=== PATIENT | female | born 1925 | race Native Hawaiian/Other Pacific Islander ===

== ENCOUNTER 2016-06-21 09:02 | Inpatient (IN) | payer OTHER ==
[~2016-06-21 09:02] MED LIST: AMLO10TA PO; ANUSOL-HC2.5 % RE; ASPIRIN/ENTERIC81 MG PO; BAYER ASPIRIN E81 MG OR; CETIRIZINE10 MG PO; CIPRO250 MG PO; CLOP75TA2 PO; CULTURELL3 PO; CYCL10TA35 PO; CYPROHEPTAD4 MG PO; FLUC150T PO; FURO20TA67 PO; GLIP10TA55 PO; GLUMETZA500 MG PO; HALO5INJ3 IM; HYDR2.5C36 EX; IMDUR30 MG PO; IMDUR60 MG PO; ISOS30TA17 PO; LEXAPRO10 MG OR; LIPITOR80 MG PO; LISI10TA11 PO; MACROBID100 MG PO; METO25TA4 PO; METO50TA27 PO; NAMENDA5 MG OR; NAMENDA5 MG PO; NITR0.4S2 SL; OLAN10TA2 PO; PANT40TA PO; PLAVIX75 MG PO; POLY3350 PO; PROCTOZONE1 CRE RE; TYLENOL325 MG PO; ZANTAC 75 PO
== END 2016-07-22 08:00 | disposition still patient (30) ==
LOC: PAVB 09:02
PROVIDERS: ADMIT Internal Medicine
DX: Z51.89 Encounter for other specified aftercare (principal)
CPT/HCPCS: 82272

== ENCOUNTER 2016-07-22 09:00 | Inpatient (IN) | payer OTHER | END 2016-08-22 10:54 | disposition still patient (30) | LOC: PAVB 09:00 | PROVIDERS: ADMIT Internal Medicine | DX: Z51.89 Encounter for other specified aftercare (principal) ==

== ENCOUNTER 2016-07-23 07:22 | Outpatient (CLI) | payer OTHER ==
[2016-07-23 08:03] LABS: PLATELET COUNT 229 K/uL (152-353)
[2016-07-23 08:38] LABS: POTASSIUM 4.8 mmol/L (3.6-5.2)
== END 2016-07-23 19:19 | disposition home or self-care (01) ==
LOC: LAB 07:22
PROVIDERS: Internal Medicine
DX: D64.89 Other specified anemias (principal); I10 Essential (primary) hypertension; E11.9 Type 2 diabetes mellitus without complications
CPT/HCPCS: 36415; 80053; 80061; 83036; 85027

== ENCOUNTER 2016-07-30 14:19 | Outpatient (CLI) | payer OTHER | END 2016-07-30 19:26 | disposition home or self-care (01) | LOC: CT 14:19 | DX: S00.83XA Contusion of other part of head, initial encounter (principal) ==

== ENCOUNTER 2016-07-31 05:55 | Outpatient (CLI) | payer OTHER ==
[2016-07-31 09:05] VITALS: BP 158/94; TEMP 97.2
== END 2016-07-31 19:06 | disposition home or self-care (01) ==
LOC: LAB 05:55 → INF 05:55
DX: D64.89 Other specified anemias (principal)
CPT/HCPCS: 36415; 85014; 85018; 96372; J0885

== ENCOUNTER 2016-08-14 04:23 | Outpatient (CLI) | payer OTHER | END 2016-08-14 23:30 | disposition home or self-care (01) | LOC: LAB 04:23 → INF 04:23 | DX: N18.3 Chronic kidney disease, stage 3 (moderate) (principal); D63.1 Anemia in chronic kidney disease | CPT/HCPCS: 85014; 85018 ==

== ENCOUNTER 2016-08-22 11:42 | Inpatient (IN) | payer OTHER ==
[2016-09-13] MEDS ORDERED: DONE5TAB PO (13:01)
[2016-09-13] MEDS ORDERED: LEXAPRO10 MG OR (13:02)
[2016-09-13] MEDS ORDERED: FURO40TA93 PO (13:03)
[2016-09-13] MEDS ORDERED: NAMENDA5 MG OR (13:05)
[2016-09-13] MEDS ORDERED: MULTIVITAMIN OR (13:07)
[2016-09-13] MEDS ORDERED: ASCO500T18 PO (13:08)
[2016-09-13] MEDS ORDERED: EPOGEN2000 MG/ML IJ (13:09)
== END 2016-09-19 12:34 | disposition still patient (30) ==
LOC: PAVB 11:42
PROVIDERS: ADMIT Internal Medicine
DX: Z51.89 Encounter for other specified aftercare (principal)

== ENCOUNTER 2016-08-28 04:16 | Outpatient (CLI) | payer OTHER ==
[~2016-08-28] VITALS: Ht 157.5 cm; Wt 50.1 kg
[2016-08-28 09:15] VITALS: BP 167/76; TEMP 97.7
== END 2016-08-28 20:09 | disposition home or self-care (01) ==
LOC: LAB 04:16 → INF 04:16
DX: N18.3 Chronic kidney disease, stage 3 (moderate) (principal); D63.1 Anemia in chronic kidney disease
CPT/HCPCS: 36415; 85014; 85018; 96372; J0885

== ENCOUNTER 2016-09-11 08:06 | Outpatient (CLI) | payer OTHER ==
[~2016-09-11] VITALS: Ht 157.5 cm; Wt 50.1 kg
[2016-09-11 14:49] VITALS: BP 157/74; TEMP 96
== END 2016-09-11 23:37 | disposition home or self-care (01) ==
LOC: INF 08:06 → LAB 08:06 → INF 10:00
DX: N18.3 Chronic kidney disease, stage 3 (moderate) (principal); D63.1 Anemia in chronic kidney disease
CPT/HCPCS: 36415; 85014; 85018; 96372; J0885

== ENCOUNTER 2016-09-12 10:56 | Outpatient (CLI) | payer OTHER ==
[2016-09-13] MEDS ORDERED: DONE5TAB PO (13:01)
[2016-09-13] MEDS ORDERED: LEXAPRO10 MG OR (13:02)
[2016-09-13] MEDS ORDERED: FURO40TA93 PO (13:03)
[2016-09-13] MEDS ORDERED: NAMENDA5 MG OR (13:05)
[2016-09-13] MEDS ORDERED: MULTIVITAMIN OR (13:07)
[2016-09-13] MEDS ORDERED: ASCO500T18 PO (13:08)
[2016-09-13] MEDS ORDERED: EPOGEN2000 MG/ML IJ (13:09)
== END 2016-09-12 19:01 | disposition home or self-care (01) ==
LOC: LAB 10:56 → RAD 10:56 → LAB 19:01
DX: I50.23 Acute on chronic systolic (congestive) heart failure (principal); R05 Cough; R09.89 Other specified symptoms and signs involving the circulatory and respiratory systems
CPT/HCPCS: 83880

== ENCOUNTER 2016-09-13 10:30 | Inpatient (IN) | payer OTHER ==
[~2016-09-13] VITALS: Ht 157.5 cm; Wt 52.4 kg
[2016-09-13 10:35] VITALS: BP 124/60; TEMP 98.2
[2016-09-13 11:50] LABS: PLATELET COUNT 199 K/uL (152-353)
[2016-09-13 11:56] LABS: POTASSIUM 4.6 mmol/L (3.6-5.2); SODIUM 133 mmol/L (136-145)
[2016-09-13] MEDS ORDERED: DONE5TAB PO (13:01)
[2016-09-13] MEDS ORDERED: LEXAPRO10 MG OR (13:02)
[2016-09-13] MEDS ORDERED: FURO40TA93 PO (13:03)
[2016-09-13] MEDS ORDERED: NAMENDA5 MG OR (13:05)
[2016-09-13] MEDS ORDERED: MULTIVITAMIN OR (13:07)
[2016-09-13] MEDS ORDERED: ASCO500T18 PO (13:08)
[2016-09-13] MEDS ORDERED: EPOGEN2000 MG/ML IJ (13:09)
[2016-09-13 14:31] VITALS: BP 158/80; TEMP 97.7; Ht 157.5 cm; Wt 52.4 kg
--- NOTE | 2016-09-13 15:15 | NUR ---
16 FR LANG PLACED USING STERILE TECHNIQUE. 10ML OF STERILE WATER FILLED BULB AND CATHETER TUBING SECURED TO RIGHT THIGH.
[2016-09-13 16:00] VITALS: BP 158/82; TEMP 97.7
[2016-09-13 20:03] VITALS: BP 129/81; TEMP 98.7
[2016-09-14] VITALS: BP 161/71; TEMP 98.7
[2016-09-14 04:00] VITALS: BP 170/78; TEMP 100
[2016-09-14 05:09] LABS: PLATELET COUNT 220 K/uL (152-353)
[2016-09-14 05:22] LABS: POTASSIUM 4.3 mmol/L (3.6-5.2)
[2016-09-14 08:00] VITALS: BP 157/89; TEMP 98.9
[2016-09-14 12:06] VITALS: BP 147/67; TEMP 99.5
[2016-09-14 16:00] VITALS: BP 140/66; TEMP 98.9
[2016-09-14 20:00] VITALS: BP 160/76; TEMP 99.1
[2016-09-15] VITALS: BP 146/68; TEMP 97.2
[2016-09-15 03:42] VITALS: BP 153/73; TEMP 97.7
[2016-09-15 05:15] LABS: PLATELET COUNT 210 K/uL (152-353)
[2016-09-15 05:18] LABS: POTASSIUM 3.9 mmol/L (3.6-5.2)
[2016-09-15 08:05] VITALS: BP 173/79; TEMP 97.8
--- NOTE | 2016-09-15 08:25 | NUR ---
PT REC'G BATH AT THIS TIME BY SITTER. LINENS PROVIDED. INSTRUCTED SITTER TO CALL FOR ANY ASSISTANCE.
[2016-09-15 11:44] VITALS: BP 144/77; TEMP 98.2
--- NOTE | 2016-09-15 11:44 | NUR ---
PT UP TO CHAIR AT THIS TIME. FAMILY AT BS. NAD NOTED. UA COLLECTED ORDERED.
[2016-09-15 16:22] VITALS: BP 147/68; TEMP 98.2
[2016-09-15 20:13] VITALS: BP 165/88; TEMP 99.1
[2016-09-16 00:10] VITALS: BP 172/82; TEMP 98.6
[2016-09-16 04:29] VITALS: BP 168/86; TEMP 98.3
[2016-09-16 05:49] LABS: POTASSIUM 3.6 mmol/L (3.6-5.2)
[2016-09-16 06:01] LABS: PLATELET COUNT 244 K/uL (152-353)
[2016-09-16 08:00] VITALS: BP 153/82; TEMP 97.8
[2016-09-16 11:55] VITALS: BP 148/82; TEMP 98
[2016-09-16 16:00] VITALS: BP 168/82; TEMP 98
[2016-09-16 20:30] VITALS: BP 168/86; TEMP 98.1
[2016-09-17 00:25] VITALS: BP 170/90; TEMP 98.6
[2016-09-17 03:40] VITALS: BP 162/90; TEMP 98.5
[2016-09-17 06:19] LABS: POTASSIUM 4.1 mmol/L (3.6-5.2)
[2016-09-17 06:39] LABS: PLATELET COUNT 229 K/uL (152-353)
[2016-09-17 08:00] VITALS: BP 170/102; TEMP 98.4
--- NOTE | 2016-09-17 09:09 | NUR ---
09/17/16 AT 0025[facility] 170/90, NO S/S OF DISTRESS AND PT DENIES ANY PROBLEMS. STAFF WILL CONTINUE TO MONITOR B/P, CHARGE NURSE ALSO AWARE OF PT'S B/P.
[2016-09-17 12:02] VITALS: BP 168/91; TEMP 98.4
--- NOTE | 2016-09-17 14:03 | NUR ---
1345 CALLED TO ROOM FOR ASISTANCE WITH PT TO BE CHANGED. PT HAD BM. SMALL AMT OF BRIGHT RED BLOOD NOTED IN DIAPER MIXED WITH BROWN STOOL. PT CLEANED AND REPSOTIIONED IN BED. INFORMED OF RECTAL BLEEDING. NO NEW ORDERS AT THIS TIME.
--- NOTE | 2016-09-17 14:07 | NUR ---
1400 DISCHARGE ORDERS REC;D AT THIS TIME. O2 SET UP PER UR WITH [facility] IN [place]. THEY WILL BRING O2 HERE TO HOSP PRIOR TO DISCHARGE. PT AWRE AND INFORMED
[2016-09-17 16:00] VITALS: BP 160/90; TEMP 97.8
--- NOTE | 2016-09-17 16:15 | NUR ---
1600 PT NOTED TO HAVE SMALL BM WITH BRIGHT RED BLOOD NOTED. DR CANO NOTIFIED AGAIN AT THIS TIME. VS TAKEN WNL SEE VS I&O. NEW ORDERS REC'D TO OBTAIN H&H AND PT/PTT EXPLAINED TO DAUGHTER DAUGHTER VERBLAZIED UNDERSTANDING
[2016-09-17 16:40] LABS: PARTIAL THROMBOPLASTIN TIME 29.8 SECONDS (24.5-33.6)
[2016-09-17 19:58] VITALS: BP 162/93; TEMP 98.6
[2016-09-18 00:01] VITALS: BP 158/92; TEMP 97
[2016-09-18 04:00] VITALS: BP 189/81; TEMP 98.5
[2016-09-18 05:56] LABS: PLATELET COUNT 208 K/uL (152-353)
[2016-09-18 08:03] VITALS: BP 121/98; TEMP 98.2
--- NOTE | 2016-09-18 09:00 | NUR ---
INFORMED PER JOE DOWELL, PCT OF SMALL BLOODY BM. AWARE. MONITORING LABS. NAD NOTED.
[2016-09-18 12:00] VITALS: BP 180/95; TEMP 98.1
[2016-09-18 15:56] VITALS: BP 143/79; TEMP 97.5
[2016-09-18 20:00] VITALS: BP 84/57; TEMP 98.3
[2016-09-19] VITALS: BP 121/69; TEMP 98
[2016-09-19 04:03] LABS: PLATELET COUNT 168 K/uL (152-353)
[2016-09-19 04:10] LABS: POTASSIUM 4.3 mmol/L (3.6-5.2)
[2016-09-19 04:55] VITALS: BP 155/78; TEMP 97.9
[2016-09-19 08:01] VITALS: BP 167/92; TEMP 97.6
[2016-09-19 12:00] VITALS: BP 164/83; TEMP 97.8
--- NOTE | 2016-09-19 13:41 | NUR ---
1200 BS 425 COVERED WITH SS COVERAGE WILL REECHECK IN 1 HR. 1330 BS RECHECKED: 500 MD INFORMED. NEW ORDERS REC'D TO HOLD SOLUMEDROL AND GIVE ANOTHER 10 OF HUMALOG
[2016-09-19 16:26] VITALS: BP 127/71; TEMP 97.6
--- NOTE | 2016-09-19 16:40 | NUR ---
1635 LAB CALLED WITH GLUCOSE VERIFICATION 535 DR CANO CALLED AND REPORTED ELEVATED BS . NEW ORDERS REC'D TO GIVE 20UNITS OF HUMALOG NOW RECHECK IN 1 HR
--- NOTE | 2016-09-19 17:36 | NUR ---
1740 1 HR BS RECHECK 472 DR CANO NOTIFIED. NEW ORDERS GIVEN AGAIN FOR 20 UNTIS SQ RECEHCK IN 1 HR AND NOTIFY
[2016-09-19 20:00] VITALS: BP 115/63; TEMP 98.1
[2016-09-20] VITALS: BP 115/76; TEMP 97.4
[2016-09-20 04:00] VITALS: BP 116/68; TEMP 97.6
[2016-09-20 05:37] LABS: PLATELET COUNT 206 K/uL (152-353)
[2016-09-20 06:23] LABS: POTASSIUM 3.6 mmol/L (3.6-5.2)
[2016-09-20 07:51] VITALS: BP 120/70; TEMP 97.4
[2016-09-20 12:00] VITALS: BP 129/71; TEMP 97.6
--- NOTE | 2016-09-20 14:31 | NUR ---
1415 PRECIOUS LAU DC'D PER ORDEDRS. NO PROBLEMS NOTED. FAMILY AT BS
--- NOTE | 2016-09-20 14:33 | NUR ---
DAILY WEIGHT IS 122
--- NOTE | 2016-09-20 14:42 | NUR ---
1445 PT TRANSFERRED BACK TO [facility] VIA PT'S BED FROM [facility] WITH MELTING FURNACE SKIMMER. NO ACUTE DISTRESS NOTED. REPORT GIVEN TO CALLUM AT [facility]
== END 2016-09-20 14:36 | disposition home or self-care (01) | DRG 291 ==
LOC: ED 10:30 → MED/SURG 12:55
PROVIDERS: Emergency Medicine; Internal Medicine; ADMIT Specialist
DX: I13.0 Hypertensive heart and chronic kidney disease with heart failure and stage 1 through stage 4 chronic kidney disease, or unspecified chronic kidney disease (principal); I50.23 Acute on chronic systolic (congestive) heart failure; N39.0 Urinary tract infection, site not specified; K62.5 Hemorrhage of anus and rectum; N18.4 Chronic kidney disease, stage 4 (severe); I25.10 Atherosclerotic heart disease of native coronary artery without angina pectoris; B96.29 Other Escherichia coli [E. coli] as the cause of diseases classified elsewhere; R06.02 Shortness of breath; E11.9 Type 2 diabetes mellitus without complications; N18.3 Chronic kidney disease, stage 3 (moderate); D63.1 Anemia in chronic kidney disease; R05 Cough; R09.89 Other specified symptoms and signs involving the circulatory and respiratory systems
CPT/HCPCS: 36415; 80048; 80053; 81000; 82272; 82550; 82553; 82947; 82948; 83605; 83735; 83880; 84100; 84484; 85014; 85018; 85027; 85379; 85610; 85730; 87077; 87086; 87088; 87186; 93005; 94640; 94664; 94760; 96372; 99284; J0885; J1020; J1644; J1650; J1940; J2920; J2930; J3490; J7060

== ENCOUNTER 2016-09-19 12:46 | Inpatient (IN) | payer OTHER ==
[~2016-09-19] VITALS: Ht 157.5 cm; Wt 50.0 kg
[~2016-09-19 12:46] MED LIST changes: +ASCO500T18 PO; +DONE5TAB PO; +EPOGEN2000 MG/ML IJ; +FURO40TA93 PO; +MULTIVITAMIN OR
== END 2016-10-20 08:10 | disposition still patient (30) ==
LOC: PAVB 12:46
PROVIDERS: ADMIT Internal Medicine
DX: Z51.89 Encounter for other specified aftercare (principal)
CPT/HCPCS: J0885

== ENCOUNTER 2016-09-25 05:52 | Outpatient (CLI) | payer OTHER ==
[~2016-09-25] VITALS: Ht 157.5 cm; Wt 50.0 kg
[2016-09-25 10:25] VITALS: BP 140/69; TEMP 97.7
== END 2016-09-25 10:55 ==
LOC: INF 05:52 → LAB 05:52 → INF 10:55
DX: N18.3 Chronic kidney disease, stage 3 (moderate) (principal); D63.1 Anemia in chronic kidney disease
CPT/HCPCS: 36415; 85014; 85018; 96372; J0885

== ENCOUNTER 2016-10-02 15:22 | Outpatient (CLI) | payer OTHER | END 2016-10-02 19:33 | disposition home or self-care (01) | LOC: RESP 15:22 | DX: I50.9 Heart failure, unspecified (principal) | CPT/HCPCS: 93306 ==

== ENCOUNTER 2016-10-03 10:54 | Outpatient (CLI) | payer OTHER ==
[2016-10-03 11:10] LABS: PLATELET COUNT 309 K/uL (152-353)
[2016-10-03 12:09] LABS: POTASSIUM 4.8 mmol/L (3.6-5.2)
== END 2016-10-03 19:13 | disposition home or self-care (01) ==
LOC: LABW 10:54
PROVIDERS: Internal Medicine
DX: R06.09 Other forms of dyspnea (principal); M54.5 Low back pain; R05 Cough; I50.9 Heart failure, unspecified; M85.89 Other specified disorders of bone density and structure, multiple sites
CPT/HCPCS: 36415; 80053; 83880; 85027

== ENCOUNTER 2016-10-09 04:32 | Outpatient (CLI) | payer OTHER ==
[~2016-10-09] VITALS: Ht 157.5 cm; Wt 50.1 kg
[2016-10-09 09:10] VITALS: BP 160/88; TEMP 97.7
[2016-10-09 09:48] VITALS: BP 147/80
== END 2016-10-09 19:11 | disposition home or self-care (01) ==
LOC: INF 04:32 → LAB 04:32 → RAD 04:32 → INF 19:11
DX: N18.3 Chronic kidney disease, stage 3 (moderate) (principal); S00.83XA Contusion of other part of head, initial encounter; D63.1 Anemia in chronic kidney disease
CPT/HCPCS: 36415; 85014; 85018; 96372; J0885

== ENCOUNTER 2016-10-20 09:05 | Inpatient (IN) | payer OTHER | END 2016-11-19 09:17 | disposition still patient (30) | LOC: PAVB 09:05 | PROVIDERS: ADMIT Internal Medicine | DX: Z51.89 Encounter for other specified aftercare (principal) ==

== ENCOUNTER 2016-10-23 04:41 | Outpatient (CLI) | payer OTHER ==
[~2016-10-23] VITALS: Ht 157.5 cm; Wt 50.0 kg
[2016-10-23 14:10] VITALS: BP 163/77; TEMP 97.4
== END 2016-10-23 05:41 | disposition home or self-care (01) ==
LOC: LAB 04:41 → INF 04:41
DX: N18.3 Chronic kidney disease, stage 3 (moderate) (principal); E11.9 Type 2 diabetes mellitus without complications; D63.1 Anemia in chronic kidney disease
CPT/HCPCS: 83036; 85014; 85018; 96372; J0885

== ENCOUNTER 2016-11-06 05:33 | Outpatient (CLI) | payer OTHER | END 2016-11-06 19:10 | disposition home or self-care (01) | LOC: LAB 05:33 | DX: Z16.24 Resistance to multiple antibiotics (principal); Z51.81 Encounter for therapeutic drug level monitoring; N39.0 Urinary tract infection, site not specified | CPT/HCPCS: 81000; 85014; 85018; 87077; 87081; 87086; 87088; 87186 ==

== ENCOUNTER 2016-11-09 05:18 | Outpatient (CLI) | payer OTHER | END 2016-11-09 19:10 | disposition home or self-care (01) | LOC: LAB 05:18 | DX: I50.23 Acute on chronic systolic (congestive) heart failure (principal) | CPT/HCPCS: 83880 ==

== ENCOUNTER 2016-11-11 19:23 | Outpatient (CLI) | payer OTHER ==
[2016-11-11 21:22] LABS: POTASSIUM 5.7 mmol/L (3.6-5.2)
== END 2016-11-11 22:00 | disposition home or self-care (01) ==
LOC: LAB 19:23
PROVIDERS: Internal Medicine
DX: R33.8 Other retention of urine (principal)
CPT/HCPCS: 36415; 80048

== ENCOUNTER 2016-11-13 10:28 | Inpatient (IN) | payer OTHER ==
[~2016-11-13] VITALS: Ht 157.5 cm; Wt 48.7 kg
[2016-11-13 10:20] VITALS: BP 165/83; TEMP 98
[2016-11-13 14:07] LABS: POTASSIUM 4.2 mmol/L (3.6-5.2)
[2016-11-13 14:36] VITALS: BP 118/58
[2016-11-13 14:51] LABS: PLATELET COUNT 303 K/uL (152-353)
[2016-11-13 15:19] VITALS: BP 165/75; TEMP 98.3; Ht 157.5 cm; Wt 48.7 kg
[2016-11-13 16:21] VITALS: BP 165/76; TEMP 98.3
[2016-11-13 20:00] VITALS: BP 141/62; TEMP 97.9
[2016-11-14] VITALS: BP 113/61; TEMP 98.5
[2016-11-14 04:00] VITALS: BP 129/64; TEMP 97.7
[2016-11-14 04:24] LABS: PLATELET COUNT 191 K/uL (152-353)
[2016-11-14 04:36] LABS: POTASSIUM 3.9 mmol/L (3.6-5.2)
[2016-11-14 08:00] VITALS: BP 188/73; TEMP 98.2
[2016-11-14 12:00] VITALS: BP 130/75; TEMP 98.6
[2016-11-14 16:00] VITALS: BP 148/77; TEMP 98.1
[2016-11-14 18:29] LABS: POTASSIUM 3.6 mmol/L (3.6-5.2)
[2016-11-14 20:00] VITALS: BP 168/84; TEMP 98.7
[2016-11-15] VITALS: BP 163/79; TEMP 98.1
[2016-11-15 04:00] VITALS: BP 175/89; TEMP 97.9
[2016-11-15 04:52] LABS: PLATELET COUNT 190 K/uL (152-353)
[2016-11-15 05:02] LABS: POTASSIUM 3.3 mmol/L (3.6-5.2)
[2016-11-15 08:00] VITALS: BP 179/71; TEMP 97.6
[2016-11-15 12:00] VITALS: BP 156/73; TEMP 98.6
[2016-11-15 16:00] VITALS: BP 132/82; TEMP 98.6
[2016-11-15 17:52] LABS: POTASSIUM 3.5 mmol/L (3.6-5.2)
[2016-11-15 20:43] VITALS: BP 141/75; TEMP 98.8
[2016-11-16 00:18] VITALS: BP 128/69; TEMP 98.8
[2016-11-16 04:00] VITALS: BP 139/67; TEMP 98
[2016-11-16 05:09] LABS: POTASSIUM 3.2 mmol/L (3.6-5.2)
[2016-11-16 05:15] LABS: PLATELET COUNT 168 K/uL (152-353)
[2016-11-16 07:51] VITALS: BP 139/72; TEMP 98.9
[2016-11-16 11:44] VITALS: BP 109/55; TEMP 98.3
[2016-11-16 15:57] VITALS: BP 116/53; TEMP 99.3
[2016-11-16 19:47] VITALS: BP 139/68; TEMP 98.2
[2016-11-17 00:15] VITALS: BP 123/53; TEMP 98.8
[2016-11-17 08:00] VITALS: BP 151/75; TEMP 98.9
[2016-11-17 09:08] LABS: PLATELET COUNT 153 K/uL (152-353)
[2016-11-17 09:15] LABS: POTASSIUM 3.7 mmol/L (3.6-5.2)
[2016-11-17 11:44] VITALS: BP 162/67; TEMP 97.7
[2016-11-17 16:00] VITALS: BP 132/98; TEMP 98
[2016-11-17 20:08] VITALS: BP 158/73; TEMP 97.9
[2016-11-18] VITALS (7 sets, daily range): BP systolic 100–183; BP diastolic 65–89; TEMP 97.6–99.4
[2016-11-18 06:50] LABS: PLATELET COUNT 124 K/uL (152-353)
[2016-11-18 07:10] LABS: POTASSIUM 3.7 mmol/L (3.6-5.2)
[2016-11-19] VITALS: BP 143/76; TEMP 98.5
[2016-11-19 04:00] VITALS: BP 139/63; TEMP 98.6
[2016-11-19 07:57] VITALS: BP 158/70; TEMP 99.4
[2016-11-19 12:00] VITALS: BP 144/67
== END 2016-11-19 13:26 | DRG 682 ==
LOC: ED 10:28 → MED/SURG 13:53
PROVIDERS: Internal Medicine; ADMIT Specialist
DX: N17.8 Other acute kidney failure (principal); I50.23 Acute on chronic systolic (congestive) heart failure; I13.11 Hypertensive heart and chronic kidney disease without heart failure, with stage 5 chronic kidney disease, or end stage renal disease; E87.0 Hyperosmolality and hypernatremia; N18.5 Chronic kidney disease, stage 5; E86.0 Dehydration; E03.8 Other specified hypothyroidism; R41.82 Altered mental status, unspecified; E87.8 Other disorders of electrolyte and fluid balance, not elsewhere classified; R53.81 Other malaise; D64.89 Other specified anemias; D69.6 Thrombocytopenia, unspecified; E11.649 Type 2 diabetes mellitus with hypoglycemia without coma; R13.12 Dysphagia, oropharyngeal phase; F03.90 Unspecified dementia, unspecified severity, without behavioral disturbance, psychotic disturbance, mood disturbance, and anxiety; R33.8 Other retention of urine
CPT/HCPCS: 36415; 80048; 80053; 81000; 82550; 82553; 82570; 83735; 83880; 84100; 84300; 84443; 84484; 84540; 85027; 87040; 93005; 96360; 96361; 96365; 96366; 96372; 96375; 99284; J1644; J1720; J3411; J3430; J3490

== ENCOUNTER 2016-11-19 10:31 | Inpatient (IN) | payer OTHER | END 2016-12-14 05:00 | disposition E | LOC: PAVB 10:31 | PROVIDERS: ADMIT Internal Medicine | DX: Z51.89 Encounter for other specified aftercare (principal) ==